=== PATIENT | male | born 1940 | race Caucasian/White ===

== ENCOUNTER → 2017-01-30 | Outpatient (CLI) | payer MEDICARE ==
--- NOTE | 2017-01-30 13:52 | MR ---
EXAMINATION TYPE: MR brain wo con DATE OF EXAM: 01/30/2017 1:35 PM COMPARISON: Prior MRI brain November 27, 2010. Prior CT brain September 05, 2013. HISTORY: partial epilepsy TECHNIQUE: Multiplanar, multisequence imaging of the brain and brainstem is performed without IV cont rast. FINDINGS: Diffusion weighted images demonstrate no evidence of a recent infarct or other diffusion abnormality. There is no worrisome extra-axial fluid collection. There is ventricular and sulcal prominence consis tent with diffuse cerebral atrophy. There are few scattered foci of T2 hyperintensity felt to reflect product of chronic small vessel ischemic change in patient this age, less than 10 punctate lesions a re present. The brain volume is age appropriate. T2 coronal weighted images show hippocampal gyri to appear symmetric and felt within normal limits though some artifact is present making evaluation subo ptimal. Midline structures demonstrate normal morphology. The craniocervical junction appears within normal limits. Normal vascular flow voids are present. Tortuous course to distal right vertebral artery is r edemonstrated. The visualized sinuses are clear and the globes are intact. IMPRESSION: Mild age-related cerebral atrophy and mild to minimal chronic small vessel ischemic desai e redemonstrated. No new suspicious finding identified.
== END | disposition home or self-care (01) ==
LOC: RADMRIMAIN 12:49
PROVIDERS: ATTEND Psychiatry & Neurology Neurology
DX: G31.1 Senile degeneration of brain, not elsewhere classified (principal); I67.82 Cerebral ischemia
CPT/HCPCS: 70551

== ENCOUNTER → 2018-04-21 | Outpatient (CLI) | payer MEDICARE ==
--- NOTE | 2018-04-21 11:57 | XR ---
EXAMINATION TYPE: XR lumbar spine 2 or 3V DATE OF EXAM: 04/21/2018 CLINICAL HISTORY: Back pain with no known trauma TECHNIQUE: Frontal and lateral images of the lumbar spine are obtained. COMPARISON: 01/25/2014 FINDINGS: There are 5 lumbar type vertebral bodies identified. There are moderate degenerative desai es of the lumbar spine demonstrated as intervertebral disc space narrowing and endplate sclerosis. Ve ry mild vertebral body height loss at L1 of approximately 10% is overall similar to the exam of 2013. There are multilevel nearly bridging anterior osteophytes, intervertebral disc space narrowing, endp late sclerosis and facet arthropathy with vacuum disc disease at L4-5. There is slight retrolisthesis of L2 with respect to L3 and L3 with respect to L4, also similar to the prior of 2013. The visualiz ed abdominal aorta demonstrates dense calcific atheromatous plaquing. Overlying bowel is nondilated. IMPRESSION: 1. No acute fracture of the lumbar spine. 2. Mild (less than 10%) vertebral body height loss of L1 overall similar to the prior of 2013. 3. Similar minimal retrolisthesis of L2 with respect to L3 and L3 with respect to L4 in comparison th e prior 2013, likely on a degenerative basis. 4. Progression of degenerative disc disease in comparison the prior, now moderate most exaggerated at L4-L5.
== END | disposition home or self-care (01) ==
LOC: RADXRMAIN 07:10
PROVIDERS: ATTEND Nurse Practitioner Family
DX: M51.16 Intervertebral disc disorders with radiculopathy, lumbar region (principal); M43.16 Spondylolisthesis, lumbar region
CPT/HCPCS: 72100

== ENCOUNTER → 2018-04-21 | Outpatient (CLI) | payer MEDICARE | END | disposition home or self-care (01) | LOC: LABWHC1 07:36 | PROVIDERS: ATTEND Psychiatry & Neurology Neurology | DX: G40.209 Localization-related (focal) (partial) symptomatic epilepsy and epileptic syndromes with complex partial seizures, not intractable, without status epilepticus (principal) | CPT/HCPCS: 36415; 80175 ==

== ENCOUNTER → 2018-05-14 | Outpatient (CLI) | payer MEDICARE ==
--- NOTE | 2018-05-14 12:20 | MR ---
EXAMINATION TYPE: MR lumbar spine wo con DATE OF EXAM: 05/14/2018 COMPARISON: None HISTORY: 77-year-old male Radiculopathy, LBP TECHNIQUE: Multiplanar, multisequence images of the lumbar spine were acquired. Findings: Vertebral body heights are preserved. There is grade 1 retrolisthesis from L2 through L5 levels. Severe disc/endplate degenerative change at L4-L5 with edematous Modic type I endplate change. Comple te disc height loss and disc osteophyte complex formation. Bulging discs are present at multiple other levels along with variable [id number] disc desiccat ion. There is a broad-based right paracentral disc protrusion at L5-S1 with annular fissure. Additionally, there is a left central disc protrusion at T12-L1 with annular fissure. No suspicious bone marrow replacement. Conus medullaris is normal. Facet arthropathy throughout. No prevertebral or paravertebral soft tissue abnormality seen. At T12-L1, there is a left paracentral disc protrusion with tiny annular fissure. This indents the ve ntral thecal sac without significant spinal canal or neural foraminal stenosis. At L1-L2, posterior disc bulge indenting the ventral thecal sac. There is facet arthropathy without s ignificant spinal canal or neuroforaminal stenosis. At L2-L3, mild bulging disc. Mild right-sided neuroforaminal narrowing. No spinal canal stenosis. At L3-L4, grade 1 retrolisthesis with diffuse disc bulge with superimposed left paracentral protrusio n. Changes circumferentially attenuates the thecal sac without significant spinal canal stenosis. The re is facet arthropathy and mild to moderate left neural foraminal stenosis disc material abuts the t raversing left L4 nerve root. At L4-L5, disc osteophyte complex formation and facet degenerative change. Some ligamentum flavum thi ckening is also present. Changes result in moderate right greater than left neuroforaminal stenosis. The changes narrow the lateral recesses and attenuate the thecal sac without significant spinal canal stenosis. There is abutment of the traversing L5 nerve roots on both sides. At L5-S1, right paracentral disc protrusion superimposed on diffuse disc bulge. Facet arthropathy. Ch anges result in mild right neural foraminal stenosis without spinal canal stenosis. IMPRESSION: 1. Moderate multilevel degenerative disc disease, more advanced at L4-L5 with associated edematous Mo dic type I endplate change. 2. Scattered facet arthropathy and grade 1 retrolisthesis from L2 through L5 levels. 3. Posterior annular fissures at both T12-L1 and L5-S1. There is indentation of the thecal sac at diogo ious levels without significant spinal canal stenosis. 4. Moderate right greater than left neuroforaminal stenosis at L4-L5. Disc material also abuts the tr aversing L5 nerve roots on both sides at this level. 5. At L3-L4, mild to moderate left neural foraminal stenosis with disc material abutting the traversi ng left L4 nerve root.
== END | disposition home or self-care (01) ==
LOC: RADMRIMAIN 10:59
PROVIDERS: ATTEND Nurse Practitioner Family
DX: M99.73 Connective tissue and disc stenosis of intervertebral foramina of lumbar region (principal); M43.16 Spondylolisthesis, lumbar region; M51.16 Intervertebral disc disorders with radiculopathy, lumbar region; M46.96 Unspecified inflammatory spondylopathy, lumbar region
CPT/HCPCS: 72148

== ENCOUNTER 2018-05-27 14:05 | Emergency (ER) | payer MEDICARE ==
--- NOTE | 2018-05-27 14:57 | XR ---
EXAMINATION TYPE: XR KUB DATE OF EXAM: 05/27/2018 COMPARISON: NONE HISTORY: Pain TECHNIQUE: Single supine KUB image of the abdomen is obtained FINDINGS: Small bowel demonstrates no evidence for dilatation or air fluid levels. Gas and fecal material is seen in non-distended colon. No convincing evidence for pneumoperitoneum. No unusual calcifications. The lung bases are clear. The osseous structures are intact. IMPRESSION: 1. Overall nonobstructive bowel gas pattern.
[2018-05-27 15:13] LABS: Basophils % (A) 1 %; Eosinophils # (A) 0.2 k/uL (0-0.7); Eosinophils % (A) 4 %; HCT 43.1 % (39.0-53.0); HGB 14.8 gm/dL (13.0-17.5); Lymphocytes # (A) 0.9 k/uL (1.0-4.8); Lymphocytes % (A) 13 %; MCH 29.4 pg (25.0-35.0); MCHC 34.4 g/dL (31.0-37.0); MCV 85.5 fL (80.0-100.0); Monocytes # (A) 0.5 k/uL (0-1.0); Monocytes % (A) 7 %; Neutrophils # (A) 4.9 k/uL (1.3-7.7); Neutrophils % (A) 74 %; Platelet Count 191 k/uL (150-450); RBC 5.05 m/uL (4.30-5.90); RDW 14.1 % (11.5-15.5); WBC 6.6 k/uL (3.8-10.6)
[2018-05-27 15:21] LABS: Calcium 9.1 mg/dL (8.4-10.2); Potassium 4.5 mmol/L (3.5-5.1); Total Bilirubin 0.6 mg/dL (0.2-1.3); Total Protein 6.2 g/dL (6.3-8.2)
[2018-05-27] MEDS ORDERED: DOCUSATE 283 MG/5 ML ENEMA RECTAL STA (15:24)
[2018-05-27] MEDS ORDERED: SODIUM CHLORIDE 0.9% 1,000 ML IV ONE (15:25)
[2018-05-27 16:07] VITALS: RESP 20; TEMP 97.8
--- NOTE | 2018-05-27 16:27 | ED ---
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 Patient states that he has had increasing constipation for the past 5-6 months, usually he is able to have daily bowel movements with the use of glycerin suppositories and mineral oil. However since then he has not been able to have a bowel movement. Patient denies any nausea, vomiting, weight loss. Patient does admit to blood on toilet tissue when straining from constipation occasionally. Patient had colonoscopy 3-4 years ago which he stated returned within normal limits and was told he did not need another one due to his age. After patient was not able to have another bowel movement today after 2 suppositories and mineral oil, he presented to the emergency department. Patient admitted to lower abdominal discomfort. Patient denied severe abdominal pain, right lower quadrant pain, epigastric pain, melena, abdominal surgeries, fever, chills, history of atrial fibrillation or blood clots. Patient denies any shortness of breath, chest pain , new back pain, numbness or tingling, dysuria or hematuria, constipation or diarrhea, headaches or visual changes, or any other complaints. (Cristina Sauceda) - Related Data Home Medications Medication Instructions Recorded Confirmed Aspirin 325 mg PO HS 11/04/14 05/27/18 Omeprazole [PriLOSEC] 20 mg PO AC-BRKFST 05/21/16 05/27/18 Calcium Carb/Vitamin D3/Vit K1 1 - 2 tab PO DAILY PRN 05/27/18 05/27/18 [Citracal Soft Chew] Glucosam/Blaine-Msm1/C/Juan C/Bosw 1 tab PO HS 05/27/18 05/27/18 [Glucosamine-Chondroitin Tablet] Glycerin Adult Suppository 2 suppositor RECTAL DAILY PRN 05/27/18 05/27/18 lamoTRIgine [LaMICtal] 150 mg PO BID 05/27/18 05/27/18 Previous Rx's Medication Instructions Recorded Sennosides [Senna] 17.2 mg PO ONCE PRN 14 Days #28 05/27/18 tablet Allergies Allergy/AdvReac Type Severity Reaction Status Date / Time hydrocodone bitartrate Allergy Rash/Hives Verified 05/27/18 14:28 [From Vicodin] Review of Systems ROS Other: All systems not noted in ROS Statement are negative. Constitutional: Denies: fever, chills ENT: Denies: ear pain, throat pain Respiratory: Denies: cough, dyspnea Cardiovascular: Denies: chest pain, palpitations Gastrointestinal: Reports: constipation. Denies: abdominal pain, nausea, vomiting, diarrhea, hematemesis, melena Genitourinary: Denies: urgency, dysuria, testicular pain Musculoskeletal: Denies: back pain Skin: Denies: rash, lesions Neurological: Denies: headache, weakness, numbness, paresthesias, confusion, abnormal gait <Cristina Sauceda - Last Filed: 05/27/18 16:31> ROS Other: All systems not noted in ROS Statement are negative. <Bg Trejo - Last Filed: 05/28/18 10:23> ROS Statement: Those systems with pertinent positive or pertinent negative responses have been documented in the HPI. Past Medical History Past Medical History: CVA/TIA, GERD/Reflux, Seizure Disorder, Skin Disorder, Sleep Apnea/CPAP/BIPAP Additional Past Medical History / Comment(s): seizure 7 yrs ago, psoriasis History of Any Multi-Drug Resistant Organisms: None Reported Past Surgical History: Heart Catheterization With Stent, Hernia Repair Additional Past Surgical History / Comment(s): cardiovascular patch for "hole in heart", rectal fissue, melody carpal tunnel Past Anesthesia/Blood Transfusion Reactions: No Reported Reaction Date of Last Stent Placement:: 2007 Past Psychological History: Anxiety Smoking Status: Former smoker Past Alcohol Use History: Occasional Past Drug Use History: Marijuana - Past Family History Son(s) Family Medical History: Cancer Additional Family Medical History / Comment(s): rectal Brother(s) Family Medical History: Cancer, Deep Vein Thrombosis (DVT) Additional Family Medical History / Comment(s): colon <Cristina Sauceda - Last Filed: 05/27/18 16:31> General Exam Limitations: no limitations <Cristina Sauceda Nancy - Last Filed: 05/27/18 16:31> <NeilBg - Last Filed: 05/28/18 10:23> - General Exam Comments Initial Comments: General: The patient is awake and alert, in no distress, and does not appear acutely ill. Pleasant appearing. Eye: Pupils are equal, round and reactive to light, extra-ocular movements are intact. No nystagmus. There is normal conjunctiva bilaterally. No signs of icterus. Ears, nose, mouth and throat: There are moist mucous membranes and no oral lesions. VD. Cardiovascular: There is a regular rate and rhythm. No murmur, rub or gallop is appreciated. Respiratory: Lungs are clear to auscultation, respirations are non-labored, breath sounds are equal. No wheezes, stridor, rales, or rhonchi. Gastrointestinal: No signs of scarring, ecchymosis or stria. Soft, non- distended, non-tender abdomen without masses or organomegaly noted. There is no rebound or guarding present. No CVA tenderness. Bowel sounds are active in all 4 quadrants, no high pitched tinkling. Musculoskeletal: Normal ROM. Sensation intact. Radial pulses equal bilaterally 2+. Neurological: A&O x 3. CN II-XII intact, There are no obvious motor or sensory deficits. Coordination appears grossly intact. Speech is normal. Skin: Skin is warm and dry and no rashes or lesions are noted. Psychiatric: Cooperative, appropriate mood & affect, normal judgment. (SohailCristina Cruz) Course <SohailCristina Cruz - Last Filed: 05/27/18 16:31> <Bg Trejo - Last Filed: 05/28/18 10:23> Vital Signs 05/27/18 05/27/18 05/27/18 14:14 16:05 16:36 Temperature 97.6 F 97.8 F 97.8 F Pulse Rate 90 94 93 Respiratory 16 20 20 Rate Blood Pressure 130/83 138/76 136/78 O2 Sat by Pulse 97 99 98 Oximetry - Reevaluation(s) Reevaluation #1: 05/28/18 10:22 PA supervision: I personally saw and examined the patient. I reviewed and agree with the PA findings including all diagnostic interpretations and treatment plans is written unless otherwise stated. The patient is in agreement with the plan. (Bg Trejo) Medical Decision Making - Lab Data Result diagrams: 05/27/18 15:05 05/27/18 15:05 <Cristina Sauceda - Last Filed: 05/27/18 16:31> - Lab Data Result diagrams: 05/27/18 15:05 05/27/18 15:05 <Bg Trejo - Last Filed: 05/28/18 10:23> - Medical Decision Making Physical examination unremarkable, aside from discomfort in the lower abdomen from deep palpation, pt denies pain. KUB, CBC, CMP obtained returned WNL. HgB 14.8. KUB showed non obstructive gas pattern with no distention of the colon. Rectal exam performed no fissures, fistulas or hemorrhoids palpable. Heme occult blood (+). No gross blood on examination. Pt given 1/2 of 1,000 mL bolus and docusate enema- pt was able to have a large bowel movement after the enema and stated that he was ready for discharge. At this time we feel pt is stable for discharge with RX for senna and PCP for (+) occult blood in 1-2 days, pt agreed with plan. Case discussed in detail with Dr. Trejo who evaluated the pt in person who agrees with impression and plan. (Cristina Sauceda) - Lab Data Lab Results 05/27/18 05/27/18 Range/Units 15:05 15:05 WBC 6.6 (3.8-10.6) k/uL RBC 5.05 (4.30-5.90) m/uL Hgb 14.8 (13.0-17.5) gm/dL Hct 43.1 (39.0-53.0) % MCV 85.5 (80.0-100.0) fL MCH 29.4 (25.0-35.0) pg MCHC 34.4 (31.0-37.0) g/dL RDW 14.1 (11.5-15.5) % Plt Count 191 (150-450) k/uL Neutrophils % 74 % Lymphocytes % 13 % Monocytes % 7 % Eosinophils % 4 % Basophils % 1 % Neutrophils # 4.9 (1.3-7.7) k/uL Lymphocytes # 0.9 L (1.0-4.8) k/uL Monocytes # 0.5 (0-1.0) k/uL Eosinophils # 0.2 (0-0.7) k/uL Basophils # 0.0 (0-0.2) k/uL Sodium 142 (137-145) mmol/L Potassium 4.5 (3.5-5.1) mmol/L Chloride 108 H (98-107) mmol/L Carbon Dioxide 29 (22-30) mmol/L Anion Gap 5 mmol/L BUN 24 H (9-20) mg/dL Creatinine 0.95 (0.66-1.25) mg/dL Est GFR (CKD-EPI)AfAm 89 (>60 ml/min/1.73 sqM) Est GFR (CKD-EPI)NonAf 77 (>60 ml/min/1.73 sqM) Glucose 92 (74-99) mg/dL Calcium 9.1 (8.4-10.2) mg/dL Total Bilirubin 0.6 (0.2-1.3) mg/dL AST 20 (17-59) U/L ALT 25 (21-72) U/L Alkaline Phosphatase 65 (38-126) U/L Total Protein 6.2 L (6.3-8.2) g/dL Albumin 4.0 (3.5-5.0) g/dL Lipase 48 (23-300) U/L Disposition Is patient prescribed a controlled substance at d/c from ED?: No Time of Disposition: 16:26 <Cristina Sauceda - Last Filed: 05/27/18 16:31> <Bg Trejo - Last Filed: 05/28/18 10:23> Clinical Impression: Constipation, Occult blood positive stool Disposition: HOME SELF-CARE Condition: Good Instructions: Constipation (ED), High Fiber Diet (ED) Additional Instructions: Please use medication as discussed. Please follow-up with family doctor in the next 2 days for (+) occult blood in stool. Please return to emergency room if the symptoms increase or worsen or for any other concerns, as discussed. Prescriptions: Sennosides [Senna] 17.2 mg PO ONCE PRN 14 Days #28 tablet PRN Reason: Constipation Referrals: Rachelle Live DO [Primary Care Provider] - 1-2 days
[2018-05-27 16:37] VITALS: BP 136/78; PULSE 93
== END 2018-05-27 16:36 | disposition home or self-care (01) ==
LOC: EC 14:05
DX: K59.00 Constipation, unspecified (principal); R19.5 Other fecal abnormalities; K21.9 Gastro-esophageal reflux disease without esophagitis; G40.909 Epilepsy, unspecified, not intractable, without status epilepticus; G47.30 Sleep apnea, unspecified; Z87.891 Personal history of nicotine dependence; Z79.82 Long term (current) use of aspirin; Z79.899 Other long term (current) drug therapy; Z88.5 Allergy status to narcotic agent; Z99.89 Dependence on other enabling machines and devices; Z98.890 Other specified postprocedural states; Z80.0 Family history of malignant neoplasm of digestive organs
CPT/HCPCS: 36415; 74018; 80053; 83690; 85025; 96360; 99284

== ENCOUNTER → 2019-01-12 | Outpatient (CLI) | payer MEDICARE ==
[2019-01-12 08:01] LABS: HCT 42.7 % (39.0-53.0); HGB 13.7 gm/dL (13.0-17.5); MCH 28.2 pg (25.0-35.0); Mean Platelet Volume 6.6; Platelet Count 202 k/uL (150-450); RBC 4.85 m/uL (4.30-5.90); RDW 14.4 % (11.5-15.5); WBC 6.5 k/uL (3.8-10.6)
[2019-01-12 11:53] LABS: Albumin/Globulin Ratio 2.67 (1.60-3.17); Anion Gap 7.5 mmol/L (4.00-12.00); Carbon Dioxide 29.5 mmol/L (21.6-31.8); Globulin 1.5 g/dL (1.6-3.3); LDL Cholesterol,Calculated 123.8 mg/dL (0.0-131.0); Potassium 4.1 mmol/L (3.5-5.5); Total Bilirubin 0.7 mg/dL (0.2-1.2); Total Protein 5.5 g/dL (6.2-8.2); VLDL Calculation 23.2 mg/dL (5.00-40.00)
== END | disposition home or self-care (01) ==
LOC: LABWHC1 07:05
PROVIDERS: ATTEND Psychiatry & Neurology Neurology
DX: G40.209 Localization-related (focal) (partial) symptomatic epilepsy and epileptic syndromes with complex partial seizures, not intractable, without status epilepticus (principal); Z12.5 Encounter for screening for malignant neoplasm of prostate; Z13.220 Encounter for screening for lipoid disorders
CPT/HCPCS: 80061; 80053; 80175; 85027; 36415; G0103

== ENCOUNTER → 2019-07-20 | Outpatient (CLI) | payer MEDICARE | END | disposition home or self-care (01) | LOC: LABWHC1 08:42 | PROVIDERS: ATTEND Psychiatry & Neurology Neurology | DX: G40.209 Localization-related (focal) (partial) symptomatic epilepsy and epileptic syndromes with complex partial seizures, not intractable, without status epilepticus (principal) | CPT/HCPCS: 36415; 80175 ==

== ENCOUNTER → 2020-05-27 | Outpatient (CLI) | payer MEDICARE | END | disposition home or self-care (01) | LOC: LABWHC1 07:22 | PROVIDERS: ATTEND Psychiatry & Neurology Neurology | DX: G40.209 Localization-related (focal) (partial) symptomatic epilepsy and epileptic syndromes with complex partial seizures, not intractable, without status epilepticus (principal) | CPT/HCPCS: 36415; 80175 ==

== ENCOUNTER → 2023-02-08 | Outpatient (CLI) | payer MEDICARE | END | disposition home or self-care (01) | LOC: LABWHC1 09:19 | PROVIDERS: ATTEND Psychiatry & Neurology Neurology | DX: G40.209 Localization-related (focal) (partial) symptomatic epilepsy and epileptic syndromes with complex partial seizures, not intractable, without status epilepticus (principal) | CPT/HCPCS: 36415; 80175 ==

== ENCOUNTER 2023-10-04 08:57 | Day surgery (SDC) | payer MEDICARE ==
[~2023-10-04 08:57] MED LIST: DEXAMETHASONE SOD PHOSPHATE 4 MG/ML 1 ML VIAL IV ONE; LACTATED RINGERS 1,000 ML IV SCH; MIDAZOLAM 2 MG/2 ML VIAL IV PRN; ONDANSETRON 4 MG/2 ML VIAL IVP ONE; fentaNYL (PF) 50 MCG/ML 2 ML AMP IV PRN
[2023-10-04] MEDS ORDERED: LIDOCAINE 1% (10MG/ML) FOR IV START INTRADERMA ONE (09:41)
[2023-10-04 10:21] LABS: Potassium 4.5 mmol/L (3.5-5.1)
[2023-10-04] MEDS ORDERED: FAMOTIDINE 20 MG/2 ML VIAL IVP ONE (10:26)
[2023-10-04] MEDS ORDERED: PHENYLEPHRINE 10 MG/ML VIAL ONE (10:36)
[2023-10-04] MEDS ORDERED: PROPOFOL 10 MG/ML 20 ML VIAL IV ONE (10:36)
[2023-10-04] MEDS ORDERED: fentaNYL (PF) 50 MCG/ML 2 ML AMP ONE (10:36)
[2023-10-04] MEDS ORDERED: LIDOCAINE 1% INJ 10MG/ML (20 ML MDV) ONE (10:36)
[2023-10-04] MEDS ORDERED: BUPIVACAINE (PF) 0.25% 30 ML VIAL SQ ONE ×2 (10:39→10:48)
[2023-10-04] MEDS ORDERED: methylPREDNISolone ACETATE 40 MG/ML 1 ML VIAL MISCELLANE ONE ×2 (11:12→11:23)
[2023-10-04 11:48] VITALS: TEMP 97.2
--- NOTE | 2023-10-04 11:56 | P.OP ---
Date of Procedure: 10/04/23 Preoperative Diagnosis: 1. Exostosis right foot 2. 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 Soft tissue mass right foot 2. Exostosis right midfoot 3. Injury to Deep peroneal nerve right foot Procedure(s) Performed: 1. Partial excision right tarsal bone 2. Excision of benign soft tissue mass less than 1 cm right foot 3. Decompression deep peroneal nerve right foot Implants: None Anesthesia: FROY Surgeon: Nikhil Siegel Estimated Blood Loss (ml): 3 Pathology: other (Soft tissue mass right foot) Condition: stable Disposition: PACU Description of Procedure: The patient was brought into the operating room and placed on table supine position. Timeout was taken to confirm correct patient identifiers, correct laterally surgery, and correct procedure. Once all staff in the room were in agreement timeout, the patient was induced and placed under general anesthesia. 20 mL 0.25 Marcaine was injected as a right ankle block. The right leg was prepped and draped usual manner. The right foot was exsanguinated and the tourniquet inflated to 250 motors mercury. Preoperative area the dorsalis pedis artery was marked on the skin. In the operating room a lazy S incision was made along the line of the artery due to its proximity to the deep peroneal nerve. The incision was deepened down to the saphenous tissue careful to identify, avoid, and retract any neurovascular structures and cauterize any bleeding vess els. Dissection was carried down to the superficial fascia which was incised which expose the deep peroneal nerve. Deep peroneal nerve was thickened to 2-3 times normal and extended the entire length of the midfoot. Careful dissection was done to fully the release the nerve from the surrounding soft tissue. Once the dissection was complete, the nerve was retracted carefully to lateral direction. Palpation of the area noted very firm area of tissue that was excised. It was located over the second and third tarsometatarsal joints and measured approximately 1 cm. It was excised removed and sent to pathology. Then the periosteum was reflected medially and laterally to expose the osteophytes in the tarsometatarsal joints. Utilizing comminution a Charlie bone rasp, the osteophytes removed and smoothed down. Once completed the area was thoroughly irrigated with antibiotic saline. The capsule over the tarsometatarsal joints was closed with 2-0 Vicryl. The superficial fascia over the nerve was left open. Subcu closure done for Monocryl and skin closure done with 4-0 Stratafix in a running subcu cuticular manner. 1 mL of Depo-Medrol 40 mg/mL was injected just underneath the skin to provide anti-inflammatory effects to the deep peroneal nerve. Dermal glue was applied across incision allowed to dry then Steri-Strips was placed across incision. Incision was covered with an Arthrex jumpstart dressing and then a dry sterile dressings applied the right foot. The tourniquet was released and capillary refill return to all digits on the right foot. Anesthesia was reversed and the patient was taken recovery with vital signs stable.
[2023-10-04 13:02] VITALS: BP 116/75; PULSE 69; RESP 18
== END 2023-10-04 13:19 | disposition home or self-care (01) ==
LOC: OR 08:57
PROVIDERS: ATTEND Podiatrist
DX: S99.921A Unspecified injury of right foot, initial encounter (principal); M89.9 Disorder of bone, unspecified; M25.774 Osteophyte, right foot; X58.XXXA Exposure to other specified factors, initial encounter
CPT/HCPCS: 28043; 88305; 80051; J1030; J1100; J0690; J2405; J2001; J3010; J3490; J2704; J2371; J0665